=== PATIENT | female | born 1970 | race Two or more races ===

== ENCOUNTER → 2025-04-23 | Outpatient (CLI) | payer MEDICAID, SELFPAY ==
--- NOTE | 2025-04-23 10:02 | XR_ITS ---
Examination: Shoulder,right, 3 views Technique: Shoulder AP internal rotation, AP external rotation, Y view shoulder, 3 views Exam date and time :April 23, 2025, 1009 hours INDICATIONS: Right shoulder pain beginning one month ago. FINDINGS: Mild narrowing glenohumeral joint No shoulder fracture or dislocation Mild narrowing glenohumeral joint IMPRESSION: Mild narrowing glenohumeral joint
== END | disposition home or self-care (01) ==
DX: M25.811 Other specified joint disorders, right shoulder (principal)
CPT/HCPCS: 73030